=== PATIENT | male | born 1955 ===

== ENCOUNTER 2021-12-31 22:15 | Emergency (ER) | payer BC, SELFPAY ==
[2021-12-31] VITALS (7 sets, daily range): BP systolic 174–188; BP diastolic 96–105; PULSE 84–90; RESP 14–22; TEMP 36.6; O2SAT 96–97
--- NOTE | 2021-12-31 23:06 | ED.GENADUL_ITS ---
Discharge Plan Disposition Patient Disposition: HOME Condition: Stable Discharge Details Clinical Impression: COVID-19 Primary Care Provider: Unknown,Unknown ED Provider: Cory Loe Discharge Instructions Instructions: COVID-19 (Coronavirus Disease 2019) (ED) Additional Instructions: At this time you do have COVID. Your chest x-ray shows no evidence of pneumonia. Your laboratory work-up including your CAT scans of your head shows no evidence of stroke or other significant abnormality. Please drink plenty of fluids and stay well-hydrated. Take Tylenol or Motrin as needed for pain. Please take the Paxlovid as directed. Please use a home pulse oximeter to monitor your oxygen status. If you have a oxygen below 91% for greater than 5 continuous minutes, please return immediately for reassessment. If you notice any worsening of your symptoms, or any new symptoms such as vomiting, diarrhea, fever, chills, shortness of breath, chest pain, numbness, weakness, or fainting , please return immediately to the emergency department for reevaluation. Please follow up with your primary care provider as soon as possible for reassessment and reevaluation. As always, it was a pleasure participating in your medical care today. Discharge Data Discharge Date/Time-TO BE ENTERED AT DEPARTURE: 01/01/22 04:38 Medical Decision Making <DARCY Cr - Last Filed: 01/14/22 09:39> Patient is a pleasant 66 year old male, presenting today with c/c of NOGUERA. He states that this started yesterday. Also endorsing sore throat that started about a week ago. He denies any fevers. He was reported by the person that dropped him off to have an at home positive COVID test this afternoon. He denies any shortness of breath or CP. He has not had NOGUERA like this historically. He states he has been feeling confused today. Very fatigued. States that last week, while hunting with his grandson, he fell and struck his back on a rock. States that he had to crawl out about an hour after the fall. No persistant back pain. Denies weakness, sensory changes, N/V/D. On exam, patient appears acutely ill. He is confused and drifts off to sleep. Appears slightly diaphoretic. He is moving all extremities. No objective evidence of head trauma. He has a muffled voice, states this is new. Swelling L>R on the posterior oropharynx with no displacement of the uvula. No erythema. No swelling under the tongue, no lymphadenopathy. No midline c-spine tenderness. Lungs clear, abfomen benign. No pain with palpation BLE, intact distal puses. Sensation intact. Spoke with patient's , Felicita, she has not seen mao patient since Monday evening. However, he has been complaining of NOGUERA since and endorsing cold. Has been reporting fever but states this was down today. She states that she saw him tonight, was COVID positive. Repetatively reported that he was going to pass out. Was confused on the way here. reports hx of HTN. also reports about the fall last week but had not been having NOGUERA until yesterday. She does report that he struck himself in the neck with the chair in the neck. Since then, has had change in voice. Felicita [phone]. Concerned at this time for ICH. While fall was a week ago, sounds to have been signfcant. Also considered cervical dissection. Considered infectious cause such as COVID, TRAINING AND DEVELOPMENT HEAD infection. Also considered other derangment such as metabolic abnormality. Will obtain BGL. He denies hx of DM. Will give morphine for his discomfort. Labs reviewed. No leukocytosis. VBG within normal limits. Lactate within normal limits. Glucose 115. Significant normality on CMP. At the end of my shift, care transitioned to Dr. Leo with imaging and remaining labs pending. is sleeping in her car awaiting update. <Cory Leo, - Last Filed: 01/01/22 04:05> Patient is a pleasant 66 year old male, presenting today with c/c of NOGUERA. He states that this started yesterday. Also endorsing sore throat that started about a week ago. He denies any fevers. He was reported by the person that dropped him off to have an at home positive COVID test this afternoon. He denies any shortness of breath or CP. He has not had NOGUERA like this historically. He states he has been feeling confused today. Very fatigued. States that last week, while hunting with his grandson, he fell and struck his back on a rock. States that he had to crawl out about an hour after the fall. No persistant back pain. Denies weakness, sensory changes, N/V/D. On exam, patient appears acutely ill. He is confused and drifts off to sleep. Appears slightly diaphoretic. He is moving all extremities. No objective evidence of head trauma. He has a muffled voice, states this is new. Swelling L>R on the posterior oropharynx with no displacement of the uvula. No erythema. No swelling under the tongue, no lymphadenopathy. No midline c-spine tenderness. Lungs clear, abfomen benign. No pain with palpation BLE, intact distal puses. Sensation intact. Spoke with patient's , Felicita, she has not seen mao patient since Monday evening. However, he has been complaining of NOGUERA since and endorsing cold. Has been reporting fever but states this was down today. She states that she saw him tonight, was COVID positive. Repetatively reported that he was going to pass out. Was confused on the way here. reports hx of HTN. also reports about the fall last week but had not been having NOGUERA until yesterday. She does report that he struck himself in the neck with the chair in the neck. Since then, has had change in voice. Felicita [phone]. Concerned at this time for ICH. While fall was a week ago, sounds to have been signfcant. Also considered cervical dissection. Considered infectious cause such as COVID, TRAINING AND DEVELOPMENT HEAD infection. Also considered other derangment such as metabolic abnormality. Will obtain BGL. He denies hx of DM. Will give morphine for his discomfort. Labs reviewed. No leukocytosis. VBG within normal limits. Lactate within normal limits. Glucose 115. Significant normality on CMP. At the end of my shift, care transitioned to Dr. Leo with imaging and remaining labs pending. is sleeping in her car awaiting update. Dr. Leo's documentation: Patient was signed out to me by my colleague Ronel marcos. Please refer to HPI, physical exam, assessment and plan. Initially the patient came in ill-appearing and quite confused. He was complaining of a mild headache at that time. A very thorough and appropriate work-up was performed, patient's COVID test did come back positive. Laboratory work-up shows no white count, bandemia. Electrolytes are all normal. VBG is normal. Troponin normal, EKG stable. CT and CTA are negative for acute process aside for evidence of high-grade stenosis of the P2 segment of the right SCISSORS SHARPENER, but no evidence of stroke. Upon my personal reassessment of the patient at 2:10 AM the patient is feeling well. He states that he has mild congestion in the front of his head but denies any headache whatsoever. He denies any neck pain or neck stiffness. No chest pain or shor tness of breath. He does admit to a persistent cough. Chest x-ray was performed and is negative for any evidence of infiltrate. On reassessment he is ANO x3. Repeat neurologic exam was performed and he has no focal neurologic deficits whatsoever. No confusion, slurred speech, or neurologic abnormality that I can appreciate on exam. Patient is COVID-positive, and he does appear to be a candidate for monoclonal antibody therapy. He is vaccinated for COVID and did have a booster quite some time ago. I did discuss monoclonal's with the patient and he has accepted them for treatment. We have tried to reach out to the multiple times but the calls go to voicemail. Patient remained stable from a medical standpoint at this time. Oxygenation is stable. He shows no signs of stroke clinically or on imaging. CT scan of the neck is negative for any significant abnormality. No clinical evidence of meningitis. I do feel that the patient would be a good candidate for discharge and paxlovid. I did bring the patient significant other/ and, and we all discussed the case together. She feels that the patient is at his mental baseline. He just appears mildly ill. She feels comfortable bringing the patient home. We will start Paxlovid here and give the blister pack for home use. On reassessment the patient shows no hypoxemia, altered mental status, severe headache, meningeal signs, or other concerning abnormality indicative of admission at this time. Patient stable for discharge. I have extensively reviewed the treatment plan and discharge instructions with the patient and their family. I have addressed all patient concerns at this time. The patient and family was made aware of what symptoms to monitor for that would warrant a return to the emergency department. Discussed the plan with the patient and family, they demonstrate verbal understanding and agreement with our assessment and plan at this time. The documentation in this chart was dictated using Dragon dictation software. Please excuse any dictation errors. A focused exam: All 6 cardinal planes of vision are fully intact. No evidence of rotatory or vertical nystagmus. The patient demonstrated a normal jrynhp-[id number]-jtocrn, good dexterity. There was no evidence of dysdiadochokinesia. Patient was able to ambulate without difficulty. There was no wide-based gait. Romberg testing was normal. Veqv-uz-rodv testing was normal. Sensation was intact bilaterally as well as muscle strength bilaterally for all extremities. Patient was able to verbalize butter cup with no slurring, or miss pronunciation. Patient demonstrates good movement of cervical neck. There is no nuchal rigidity, no nuchal tenderness. Patient is able to flex the neck without any difficulty or significant pain. Negative Kernig's and Brudzinski sign. FINDINGS: Lungs: No consolidation. Pleural spaces: No pleural effusion. No pneumothorax. Heart/Mediastinum: No cardiomegaly. Bones/joints: No acute fracture. Degenerative changes noted at the bilateral acromioclavicular joints. IMPRESSION: No acute findings. Thank you for allowing us to participate in the care of your patient. Dictated and Authenticated by: Annabel Antonio MD 01/01/2022 1:11 AM Eastern Time ([place] & [place]) FINDINGS: Brain: There is no acute intracranial hemorrhage, mass effect or midline shift. There is no large acute territorial cerebral infarct. Bilateral basal ganglia calcifications are noted. Cerebral ventricles: No ventriculomegaly. Paranasal sinuses: There is mild mucosal thickening in the maxillary sinuses. Mastoid air cells: The mastoid air cells are unremarkable. Bones/joints: No acute fracture. Soft tissues: Unremarkable. IMPRESSION: No acute intracranial hemorrhage, mass effect or midline shift. Thank you for allowing us to participate in the care of your patient. FINDINGS: ANTERIOR CIRCULATION: Right internal carotid artery: The right internal carotid artery shows no evidence of occlusion or significant stenosis. No aneurysm. Right middle cerebral artery: No occlusion or significant stenosis in the right MCA. No aneurysm. Right anterior cerebral artery: No occlusion or significant stenosis in the right AUDELIA. No aneurysm. Left internal carotid artery: The left internal carotid artery shows no evidence of occlusion or significant stenosis. No aneurysm. Left middle cerebral artery: No occlusion or significant stenosis in the left MCA. No aneurysm. Left anterior cerebral artery: No occlusion or significant stenosis in the left AUDELIA. No aneurysm POSTERIOR CIRCULATION: Right vertebral artery: No occlusion or significant stenosis in the right vertebral artery. No aneurysm. Left vertebral artery: The left vertebral artery is hypoplastic. No definite occlusion. Basilar artery: The basilar artery shows no evidence of occlusion or significant stenosis. No aneurysm. Right posterior cerebral artery: High-grade stenosis is seen in the P2 segment of the right SCISSORS SHARPENER (image 541, series 9). Left posterior cerebral artery: No occlusion or significant stenosis. No aneurysm. Brain: No definite mass, mass effect, or midline shift. Cerebral ventricles: No ventriculomegaly. Bones/joints: Unremarkable. No acute fracture. Soft tissues: Unremarkable. IMPRESSION: 1. 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 2. No evidence of large vessel occlusion. FINDINGS: Right common carotid artery: No significant stenosis in the right CCA. No dissection or occlusion. Right internal carotid artery: No significant stenosis of the right ICA extracranial segment. No dissection or occlusion. Right external carotid artery: No occlusion or stenosis of the origin in the right ECA. Left common carotid artery: No significant stenosis in the left CCA. No dissection or occlusion. Left internal carotid artery: No significant stenosis of the left ICA extracranial segment. No dissection or occlusion. Left external carotid artery: No occlusion or stenosis of the origin in the left ECA. Right vertebral artery: No significant stenosis in the right vertebral artery. No dissection or occlusion. Left vertebral artery: No significant stenosis in the left vertebral artery. No dissection or occlusion. Soft tissues: No significant soft tissue swelling. Bones/joints: No acute fracture. IMPRESSION: No significant carotid stenosis. No arterial occlusion or dissection. HPI <DARCY Cr - Last Filed: 01/14/22 09:39> General Date/Time Provider Initiated Documentation: 12/31/21 22:30 . Limitations to Documentation: altered mental status (slightly confused/slow to answer) . Information obtained by: patient, family (spoke with on the phone) and RN notes reviewed . History of Present Illness 66 year old M presents to the emergency department with the chief complaint of headache, described as severe, with intensity rated at 10. Quality is described as aching, and is localized to the head. Patient reports no radiation. Patient started experiencing this day(s) and it has been constant. No relieving factors improve symptom(s), No exacerbating factors reported . Patient notes confusion, diaphoresis, headaches, loss of appetite, malaise and other (sore throat, change in voice); denies chest pain, cough, nausea/vomiting, rash and shortness of breath. Patient did receive the following treatments prior to arrival, none General Stated Complaint: Headache EDWIN: 3 Review of Systems <DARCY Cr - Last Filed: 01/14/22 09:39> Constitutional Constitutional: Reports as per HPI, Reports fatigue, Denies fever(s), Reports headache(s) and Denies weakness Eyes Eyes: Reports as per HPI, Denies blurry vision and Denies change in vision ENT Ears, Nose, Mouth, and Throat: Reports headache(s) and Denies neck pain Cardiovascular Cardiovascular: Reports as per HPI, Denies chest pain, Denies dyspnea and Denies dyspnea on exertion Respiratory Respiratory: Reports as per HPI, Denies chest congestion, Denies dyspnea and Denies dyspnea on exertion Gastrointestinal Gastrointestinal: Reports as per HPI, Denies abdominal pain and Denies change in bowel habits Genitourinary Genitourinary: Reports system reviewed and no additional complaints, except as documented (denies change in urinary habits) Musculoskeletal Musculoskeletal: Reports as per HPI, Denies back pain, Denies myalgias, Denies muscle cramps and Denies neck pain Integumentary/Breasts Skin/Breast: Reports as per HPI and Denies rash Neurologic Neurologic: Reports as per HPI, Reports headache(s), Denies localized weakness, Denies sensory deficit and Denies weakness Endocrine Endocrine: Reports fatigue PFSH <DARCY Cr Last Filed: 01/14/22 09:39> All Active Problems (Updated 01/01/22 @ 04:05 by Cory Leo DO) COVID-19 (Acute) Social History Smoking/Tobacco Use Status: Never Smoking risk assessment performed?: Yes Drug use: Never Do you feel safe at home: Yes Do you feel safe in your relationship?: Yes Exam <DARCY Cr Last Filed: 01/14/22 09:39> Const General: cooperative, uncomfortable, no acute distress, well developed, well groomed and ill appearing acutely Nutritional Appearance: average body habitus and well nourished Orientation: alert, awake, oriented x3 and confused (alert and oriented but answers are slow, slurred, falls asleep quickly) [facility] Head: normal to inspection, no palpable skull fracture, normocephalic and atraumatic Ears: hearing grossly normal bilaterally, external ears normal and TM's normal bilaterally General nose exam: external nose normal Mouth: oral mucosae normal and moist mucous membranes Throat: posterior oropharynx normal, tonsils normal and uvula midline Eyes General: appearance normal, both eyes and all related structures Alignment and Position: alignment normal Periorbital: periorbital findings normal Eyelids: eyelids normal Sclera: sclerae normal Cornea: corneas normal Pupils: PERRL EOM: EOM intact bilaterally Neck Neck: normal visual inspection, full ROM, no lymphadenopathy, no meningeal signs, trachea midline, supple and no anterior neck swelling Resp Effort & Inspection: normal respiratory effort, able to speak in complete sentences and no respiratory distress Auscultation: clear to auscultation bilaterally, no rales, no rhonchi and no wheezes Cardio Rate: regular rate Rhythm: regular rhythm Heart Sounds: S1 normal and S2 normal GI Inspection: normal to inspection and non-distended Palpation: soft, no hepatosplenomegaly, not firm, no guarding, not rigid and nontender Percussion: normal to percussion Auscultation: normal bowel sounds Back/Spine/Pelvis Cervical Spine: normal cervical lordosis, cervical ROM normal, No cervical muscular tenderness, No pain with cervical ROM, No cervical spinal tenderness and No step off deformity Skin General skin exam: no rashes or lesions noted Neuro General: patient alert, patient awake and patient oriented x3 Cranial Nerves: CN's II-XI intact bilaterally Cognition: normal cognition (slow, falls asleep but does answer correctly) Speech: abnormal speech slurred Gait: normal gait Motor: muscle tone normal throughout, strength 5/5 throughout, no pronator drift, no movement abnormalities noted and no fasciculations Sensory Exam: no sensory deficits noted Coordination: [id number]-[id number]-brfp test normal and nnmz-eh-[id number] test normal Extrem General: normal to inspection, capillary refill normal, no pedal edema and no calf tenderness Psych Appearance: grossly normal and well kempt Mental Status: mental status grossly normal Speech and Movement: speech and movement normal Course <DARCY Cr - Last Filed: 01/14/22 09:39> Vital Signs Vital signs: Vital Signs Temperature 36.6 C 12/31/21 22:28 Pulse 87 12/31/21 22:28 Respiratory Rate 15 12/31/21 22:28 Blood Pressure 174/96 H 12/31/21 22:28 Pulse Oximetry 96 12/31/21 22:28 Temperature 36.6 C 12/31/21 22:28 Temperature Source Oral 12/31/21 22:28 Pulse 88 12/31/21 22:55 Pulse 88 12/31/21 22:55 Respiratory Rate 17 12/31/21 22:55 Blood Pressure 178/101 H 12/31/21 22:55 Blood Pressure Mean 115 12/31/21 22:55 Blood Pressure Position Supine 12/31/21 22:28 Pulse Oximetry 97 12/31/21 22:50 Oxygen Delivery Method Room Air 12/31/21 22:28 Oxygen Flow Rate 0 12/31/21 22:28 Pain Level 10 12/31/21 22:28 Lab/Test Results Lab/Test Results: 12/31/21 22:43 Pharynx Group A Streptococcus Culture - Pending POC Strep Test-GINO(Rapid) Start: 12/31/21 22:39 Freq: .Rapid Strep Test Status: Active Protocol: Document 12/31/21 22:42 CB (Rec: 12/31/21 22:42 [id number]) Strep test-GINO(Rapid)-POC POC-Strep test-GINO (Rapid) Negative POC-Strep test-GINO (Rapid) Negative Sign Out <DARCY Cr - Last Filed: 01/14/22 09:39> Sign Out Data: Sign Out Comment: Care transition to Dr. Leo with imaging pending. Patient here with chief complaint of headache and sore throat. Recent head trauma x 1wk ago. Also at home COVID test positive this afternoon. Altered, no focal deficit. Received 4mg morphine Last updated by Ronel Ludwig PA at 01/01/22 00:41
--- NOTE | 2021-12-31 23:15 | DI.CT_ITS ---
Exam(s) CT HEAD WO EXAM: CT HEAD WO CLINICAL HISTORY: severe NOGUERA. TECHNIQUE: Imaging Protocol: Axial computed tomography images with coronal and sagittal reformatted images were created and reviewed COMPARISON: No exams were available for comparison FINDINGS: Ventricles and Extra axial spaces: Normal in size and morphology for the patient's age. Hemorrhage: None. Cerebral parenchyma: Normal. Midline shift: None. Brainstem/Cerebellum: Normal. Calvarium: Normal. Visualized Paranasal sinuses/Mastoids: There is mild mucosal thickening in the maxillary sinuses. Th e remaining sinuses and mastoid air cells are clear. Soft Tissues: Unremarkable. IMPRESSION: No acute intracranial process. RADIATION DOSE DELIVERED: 861.5mGy.cm Total DLP DATA REPOSITORY: All CT scans at this facility are submitted to the National Radiology Data Registry (NRDR) Dose Index Registry (DIR) with the [employer] ([employer]). RADIATION OPTIMIZATION: All CT scans at this facility use at least one of these dose optimization te chniques: automated exposure control; mA and/or kV adjustment per patient size (includes targeted exa ms where dose is matched to clinical indication); or iterative reconstruction.
--- NOTE | 2021-12-31 23:15 | DI.RAD_ITS ---
Exam(s) XR CHEST 2V PA LATERAL EXAM: XR CHEST 2V PA LATERAL CLINICAL HISTORY: covid, altered TECHNIQUE: 2D digital imaging was performed of the chest. Two images were obtained. PA and lateral views were obtained. COMPARISON: No exams were available for comparison FINDINGS: MEDIASTINUM: Normal. HEART: Normal. PULMONARY VASCULATURE: Normal. LUNGS: Clear. PLEURAL SPACE: No pleural effusion or pneumothorax. BONE:Within normal limits for the patient's age. OTHER FINDINGS:Normal. IMPRESSION: No acute pulmonary findings. DATA REPOSITORY: RADIATION DOSE DELIVERED:
[2022-01-01] MEDS: ACETAMINOPHEN 1,000 MG/100 ML BTL 400 MG IVPB (00:10)
[2022-01-01 00:12] LABS: BE (Venous) 3 mmol/L (-2-3); HCO3 (Venous) 28 mmol/L (23-28); Lactate 1.1 mmol/L (0.6-1.4); O2 Sat (Venous) 38 %; TCO2 (Venous) 25 mmol/L (24-29); pCO2 (Venous) 46 mmHg (41-51); pH (Venous) 7.39 (7.31-7.41); pO2 (Venous) 21 mmHg
[2022-01-01 00:13] LABS: Abs Immature Grans 0.04 10^3/uL (0.0-0.06); Absolute Basophil Count 0.03 10^3/uL (0.0-0.2); Absolute Eosinophil Count 0.01 10^3/uL (0.0-0.7); Absolute Lymphocyte Count 1.47 10^3/uL (1.2-3.4); Absolute Monocyte Count 1.23 10^3/uL (0.1-0.8); Absolute Neutrophil Count 7.97 10^3/uL (1.2-6.7); Basophils % 0.3; Eosinophils % 0.1; HCT 44.6 % (40.0-50.0); HGB 14.9 g/dL (13.5-17.5); Immature Grans % 0.4; Lymphocytes % 13.7; MCH 29.8 pg (27.0-33.0); MCHC 33.4 % (32.0-36.0); MCV 89 fL (80-95); MPV 10.8 fL (8.0-11.0); Monocytes % 11.4; Neutrophils % 74.1; Platelet Count 170 10^3/uL (130-400); RDW-SD 42.5 fL; WBC 10.75 10^3/uL (4.4-10.8)
--- NOTE | 2022-01-01 00:15 | DI.CT_ITS ---
Exam(s) CT BRAIN NECK CTA EXAM: CT BRAIN NECK CTA CLINICAL HISTORY: NOGUERA,confusion, fall w/ neck trauma. TECHNIQUE: Imaging Protocol: Axial CT angiography was performed with multi-slice acquisition and mu lti-planar and/or 3D reconstructions. CONTRAST MATERIAL: Intravenous: Omnipaque 350 contrast volume:100 mL COMPARISON: No exams were available for comparison FINDINGS: CT Head W/O and W: Ventricles and Extra axial spaces: Normal in size and morphology for the patient's age. Hemorrhage: None. Cerebral parenchyma: Normal. Midline shift: None. Brainstem/Cerebellum: Normal. Calvarium: Normal. Visualized Paranasal sinuses/Mastoids: There is mild mucosal thickening in the maxillary sinuses. Th e remaining visualized paranasal sinuses and mastoid air cells are clear. Soft Tissues: Unremarkable. Enhancement: Unremarkable. CTA Neck W: Common Carotid: Right: No dissection, occlusion or significant stenosis. Left: No dissection, occlusion or significant stenosis. External Carotid: Right: No occlusion or significant stenosis. Left: No occlusion or significant stenosis. Internal Carotid: Right: No dissection, occlusion or significant stenosis. Left: No dissection, occlusion or significant stenosis. Mild atherosclerosis at the origin. Vertebral Artery: Right: No dissection, occlusion or significant stenosis. There is a dominant right vertebral artery. Left: No dissection, occlusion or significant stenosis. The left vertebral artery is hypoplastic. Lung Apices: Normal. Bones: Within normal limits for the patient's age. Soft Tissues: Normal. Thyroid gland: Unremarkable. CTA Brain W: Internal Carotid Arteries: Normal. Atherosclerosis is present. Anterior Cerebral Arteries: Right: No aneurysm, occlusion or significant stenosis. Left: No aneurysm, occlusion or significant stenosis. Middle Cerebral Arteries: Right: No aneurysm, occlusion or significant stenosis. Left: No aneurysm, occlusion or significant stenosis. Posterior Cerebral Arteries: Right: No aneurysm or occlusion. There does appear to be high-grade stenosis of the P2 segment of t he right HEALTH EDUCATION ASSISTANT. Left: No aneurysm, occlusion or significant stenosis. Vertebral Arteries: Right: No aneurysm, occlusion or significant stenosis. Left: No aneurysm, occlusion or significant stenosis. The left vertebral artery is hypoplastic. Basilar Artery: No aneurysm, occlusion or significant stenosis. IMPRESSION: 1. There does appear to be high-grade stenosis of the P2 segment of the right HEALTH EDUCATION ASSISTANT. 2. No acute intracranial process. 3. No occlusion or significant stenosis on the CT angiography of the neck. RADIATION DOSE DELIVERED: 1,323.69mGy.cm Total DLP DATA REPOSITORY: All CT scans at this facility are submitted to the National Radiology Data Registry (NRDR) Dose Index Registry (DIR) with the [employer] ([employer]). RADIATION OPTIMIZATION: All CT scans at this facility use at least one of these dose optimization te chniques: automated exposure control; mA and/or kV adjustment per patient size (includes targeted exa ms where dose is matched to clinical indication); or iterative reconstruction.
[2022-01-01 00:25] LABS: ALT 51 U/L (16-63); AST 34 U/L (15-37); Albumin 4.8 g/dL (3.4-5.0); Alkaline Phosphatase 85 U/L (46-116); Anion Gap 7.4 mmol/L (3-11); BUN 21 mg/dL (7-18); Bilirubin, Total 0.4 mg/dL (0.2-1.0); CO2 28.6 mmol/L (21.0-32.0); CREATININE 1.2 mg/dL (0.70-1.30); Calcium 9.3 mg/dL (8.5-10.1); Chloride 98 mmol/L (98-107); Estimated GFR 67.53 (mL/min/1.73m2); Glucose 115 mg/dL (74-106); Potassium 4.3 mmol/L (3.5-5.1); Sodium 134 mmol/L (136-145)
[2022-01-01 00:32] LABS: LDH 210 U/L (85-227); Magnesium 2.2 mg/dL (1.8-2.4); Troponin I < 50 ng/L (<or=60)
[2022-01-01] MEDS: Omnipaque 350 MG/ML 100 ML BTL IJ (00:41)
[2022-01-01 00:56] LABS: Influenza A PCR Negative (Negative); Influenza B PCR Negative (Negative); RSV PCR Negative (Negative)
[2022-01-01 01:01] LABS: Source Nasopharynx
--- NOTE | 2022-01-01 01:02 | DI.VRAD_ITS ---
PROCEDURE INFORMATION: Exam: CT Head Without Contrast Exam date and time: 01/01/2022 12:15 AM Age: 66 years old Clinical indication: Injury or trauma; Concussion/head injury; Consciousness not specified; Injury details: NOGUERA, confusion, fall w/ neck trauma TECHNIQUE: Imaging protocol: Computed tomography of the head without contrast. Radiation optimization: All CT scans at this facility use at least one of these dose optimization techniques: automated exposure control; mA and/or kV adjustment per patient size (includes targeted exams where dose is matched to clinical indication); or iterative reconstruction. COMPARISON: No relevant prior studies available. FINDINGS: Brain: There is no acute intracranial hemorrhage, mass effect or midline shift. There is no large acute territorial cerebral infarct. Bilateral basal ganglia calcifications are noted. Cerebral ventricles: No ventriculomegaly. Paranasal sinuses: There is mild mucosal thickening in the maxillary sinuses. Mastoid air cells: The mastoid air cells are unremarkable. Bones/joints: No acute fracture. Soft tissues: Unremarkable. IMPRESSION: No acute intracranial hemorrhage, mass effect or midline shift. Dictated and Authenticated by: Annabel Osorio MD. Ordering:IVORY Rodney MD
[2022-01-01 01:03] LABS: COVID-19 PCR Positive (Negative)
--- NOTE | 2022-01-01 01:10 | DI.VRAD_ITS ---
PROCEDURE INFORMATION: Exam: CTA Head With Contrast, Arteriography Exam date and time: 01/01/2022 12:36 AM Age: 66 years old Clinical indication: Stroke-like symptoms; Altered mental status/memory loss; Additional info: NOGUERA, confusion, fall w/ neck trauma TECHNIQUE: Imaging protocol: Computed tomographic angiography of the head with contrast. Exam focused on the arteries. 3D rendering (Not supervised by radiologist): MIP and/or 3D reconstructed images were created by the technologist. Radiation optimization: All CT scans at this facility use at least one of these dose optimization techniques: automated exposure control; mA and/or kV adjustment per patient size (includes targeted exams where dose is matched to clinical indication); or iterative reconstruction. Contrast material: OMNI 350; Contrast volume: 100 ml; Contrast route: INTRAVENOUS (IV); COMPARISON: CT HEAD WO 01/01/2022 12:15 AM FINDINGS: ANTERIOR CIRCULATION: Right internal carotid artery: The right internal carotid artery shows no evidence of occlusion or significant stenosis. No aneurysm. Right middle cerebral artery: No occlusion or significant stenosis in the right MCA. No aneurysm. Right anterior cerebral artery: No occlusion or significant stenosis in the right [place]. No aneurysm. Left internal carotid artery: The left internal carotid artery shows no evidence of occlusion or significant stenosis. No aneurysm. Left middle cerebral artery: No occlusion or significant stenosis in the left MCA. No aneurysm. Left anterior cerebral artery: No occlusion or significant stenosis in the left [place]. No aneurysm. POSTERIOR CIRCULATION: Right vertebral artery: No occlusion or significant stenosis in the right vertebral artery. No aneurysm. Left vertebral artery: The left vertebral artery is hypoplastic. No definite occlusion. Basilar artery: The basilar artery shows no evidence of occlusion or significant stenosis. No aneurysm. Right posterior cerebral artery: High-grade stenosis is seen in the P2 segment of the right BUSINESS INTERN (image 541, series 9). Left posterior cerebral artery: No occlusion or significant stenosis. No aneurysm. Brain: No definite mass, mass effect, or midline shift. Cerebral ventricles: No ventriculomegaly. Bones/joints: Unremarkable. No acute fracture. Soft tissues: Unremarkable. IMPRESSION: 1. 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 2. No evidence of large vessel occlusion. PROCEDURE INFORMATION: Exam: CTA Neck With Contrast Exam date and time: 01/01/2022 12:36 AM Age: 66 years old Clinical indication: Stroke-like symptoms; Altered mental status/memory loss; Additional info: NOGUERA, confusion, fall w/ neck trauma TECHNIQUE: Imaging protocol: Computed tomographic angiography of the neck with contrast. 3D rendering (Not supervised by radiologist): MIP and/or 3D reconstructed images were created by the technologist. Radiation optimization: All CT scans at this facility use at least one of these dose optimization techniques: automated exposure control; mA and/or kV adjustment per patient size (includes targeted exams where dose is matched to clinical indication); or iterative reconstruction. Contrast material: OMNI 350; Contrast volume: 100 ml; Contrast route: INTRAVENOUS (IV); COMPARISON: CT HEAD WO 01/01/2022 12:15 AM FINDINGS: Right common carotid artery: No significant stenosis in the right CCA. No dissection or occlusion. Right internal carotid artery: No significant stenosis of the right ICA extracranial segment. No dissection or occlusion. Right external carotid artery: No occlusion or stenosis of the origin in the right ECA. Left common carotid artery: No significant stenosis in the left CCA. No dissection or occlusion. Left internal carotid artery: No significant stenosis of the left ICA extracranial segment. No dissection or occlusion. Left external carotid artery: No occlusion or stenosis of the origin in the left ECA. Right vertebral artery: No significant stenosis in the right vertebral artery. No dissection or occlusion. Left vertebral artery: No significant stenosis in the left vertebral artery. No dissection or occlusion. Soft tissues: No significant soft tissue swelling. Bones/joints: No acute fracture. IMPRESSION: No significant carotid stenosis. No arterial occlusion or dissection. REFERENCES: NASCET CRITERIA. The degree of stenosis in the cervical segment of the internal carotid artery is based on NASCET criteria. Normal is no stenosis. Mild is less than 50% stenosis. Moderate is 50-69% stenosis. Severe is 70% to 99% stenosis. Total occlusion is no detectable patent lumen. Dictated and Authenticated by: Annabel Osorio MD. Ordering:IVORY Rodney MD
--- NOTE | 2022-01-01 01:12 | DI.VRAD_ITS ---
PROCEDURE INFORMATION: Exam: XR Chest Exam date and time: 01/01/2022 12:25 AM Age: 66 years old Clinical indication: Injury or trauma; Fall; Blunt trauma (contusions or hematomas); Additional info: NOGUERA, confusion, fall w/ neck trauma TECHNIQUE: Imaging protocol: Radiologic exam of the chest. Views: 2 views. COMPARISON: No relevant prior studies available. FINDINGS: Lungs: No consolidation. Pleural spaces: No pleural effusion. No pneumothorax. Heart/Mediastinum: No cardiomegaly. Bones/joints: No acute fracture. Degenerative changes noted at the bilateral acromioclavicular joints. IMPRESSION: No acute findings. Dictated and Authenticated by: Annabel Osorio MD. Ordering:IVORY Rodney MD
[2022-01-01] MEDS: Lactated Ringers 1,000 ML 500 ML IV (01:57)
[2022-01-01] MEDS: Normal Saline 500 ML IV ×2 (03:37→03:38)
[2022-01-01 04:30] VITALS: BP 202/106; PULSE 96; RESP 15; O2SAT 94
== END 2022-01-01 04:38 | disposition home or self-care (01) ==
PROVIDERS: Physician Assistant; Emergency Provider Student in an Organized Health Care Education/Training Program
DX: U07.1 COVID-19 (principal)
CPT/HCPCS: 70496; 70498; 80053; 82805; 87637; 87880; 96361; 96374; 96375; 99285; Q0222; 70450; 71046; 83605; 83615; 83735; 84484; 85025; 87081; 99281; J0131; J3490